=== PATIENT | female | born 1980 | race Caucasian/White ===

== ENCOUNTER 2017-07-02 16:50 | Emergency (ER) | payer MEDICAID ==
[~2017-07-02] VITALS: Ht 162.6 cm; Wt 90.7 kg
[~2017-07-02 16:50] MED LIST: ATOR20TA40 PO
[2017-07-02 17:10] VITALS: BP 135/54
--- NOTE | 2017-07-02 20:24 | NUR ---
PT TAKEN TO OF
--- NOTE | 2017-07-02 20:58 | NUR ---
Dr. Christianson evaluating patient at bedside.
[2017-07-02 21:35] VITALS: BP 139/64
--- NOTE | 2017-07-02 21:35 | NUR ---
Patient discharged with v/s stable. Written and verbal after care instructions given and explained. Patient alert, oriented and verbalized understanding of instructions. Ambulatory with steady gait. All questions addressed prior to discharge. ID band removed. Patient advised to follow up with PMD. Rx of [place] and Ibuprofen given. Patient educated on indication of medication including possible reaction and side effects. Opportunity to ask questions provided and answered.
== END 2017-07-02 21:35 | disposition home or self-care (01) ==
LOC: MED 16:50
DX: S22.32XA Fracture of one rib, left side, initial encounter for closed fracture (principal); X58.XXXA Exposure to other specified factors, initial encounter; Y93.89 Activity, other specified; Y92.89 Other specified places as the place of occurrence of the external cause; Y99.8 Other external cause status
CPT/HCPCS: 71101; 99284